=== PATIENT | male | born 1980 | race Caucasian/White ===

== ENCOUNTER 2016-06-28 09:55 | Emergency (ER) | payer OTHER ==
[2016-06-28 10:24] VITALS: RESP 15; TEMP 97.2
[2016-06-28] MEDS ORDERED: Lidocaine 1% 10 MG/ML - 20 ML VIAL SUBCUT ONE (10:24)
[2016-06-28] MEDS ORDERED: Lidocaine Inj 1% 20 ML ONE (10:27)
--- NOTE | 2016-06-28 10:50 | PDOC ---
Lower Extremity Injury HPI - General Chief Complaint: Laceration / Wound Stated Complaint: LEFT LEG LACERATION Date Seen by Provider: 06/28/16 Time Seen by Provider: 10:00 Source: POSITIVE: Patient Exam Limitations: POSITIVE: No limitations Nurse's Notes Reviewed & Considered: Yes - History of Present Illness Initial Comments: The patient is a 35-year-old male. Approximately one hour [employer]PER[employer] he was cutting some cinder block with a concrete power saw. He lacerated his left thigh just above and lateral to the left knee. Laceration is approximately 2-1/2 cm long. No sensory motor or vascular symptoms. Tetanus vaccination status is current Have you received a tetanus shot in the past 10 years?: Yes Body Location Affected: REPORTS: Lower Extremity (L) Timing: REPORTS: Abrupt Duration: 1 hour Severity: Moderate Quality: REPORTS: "Pain" (Local pain) Location at Time of Onset: REPORTS: Work Context of Injury: REPORTS: Incision Location of Injury: REPORTS: Thigh (L) Modifying Factors: improves with: Other (Exacerbated by direct palpation) Associated Symptoms: DENIES: Unable to Bear Weight, Snapping, Popping Sensation , Became Dizzy, Fainted, Seizure, Other Any Prior Injuries Related to Current Complaint?: No - Patient Home Medications Home Medications: Home Medications NK [No Home Medications Reported] 06/28/16 - Patient Allergies Allergies/Adverse Reactions: Allergies Allergy/AdvReac Type Severity Reaction Status Date / Time No Known Allergies Allergy Verified 06/28/16 10:10 Past Medical History - heen HEENT History: Other (please comment) Additional HEENT History: WEARS GLASSES Cardiovascular History: Denies History Respiratory History: Denies History Gastrointestinal History: Denies History Genitourinary History: Denies History Endocrine History: Denies History Musculoskeletal History: Denies History Prosthesis or Implant: No Neurological History: Denies History Blood Disorders: Denies History Psychiatric History: Denies History History of Sexually Transmitted Diseases: No Male Reproductive History: Denies History Cancer History: Denies History In Past Year Been Physically Harmed or Verbally Threatened: No (PER PATIENT) History of MDRO: No History of Other Communicable Diseases: No Tobacco Use: Never Smoker Alcohol Use: Occasionally Substance Use Type: None Previous Surgical History: Yes Type / Date of Surgery: LEFT INGUINAL HERNIA REPAIR, RIGHT THUMB SURGERY Anesthesia Reactions: No Malignant Hyperthermia: No Family History of Malignant Hyperthermia: No Significant Family History: No pertinent family hx Past Medical History Reviewed: Reviewed - No Changes ROS - Limitations ROS Limitations: No Limitations Constitution: REPORTS: Denies Symptoms Cardiovascular: REPORTS: Denies Cardiac Symptoms Respiratory: REPORTS: Denies Resp Symptoms Neurological: REPORTS: Denies Neuro Symptoms Gastrointestinal: REPORTS: Denies GI Symptoms Endocrine: REPORTS: Denies Symptoms Musculoskeletal: REPORTS: Recent Injury (Laceration distal left thigh as above; see diagram.). DENIES: Back Pain, Calf Pain, Joint Pain, Lower Extremity Swelling, Muscle Aches, Neck Pain, Pedal Edema Genitourinary: REPORTS: Denies Symptoms Eyes: REPORTS: Denies Symptoms ENT: REPORTS: Denies Symptoms Lympathic: REPORTS: Denies Lympathic Symptoms Immunologic: POSITIVE: Denies Symptoms Psychiatric: POSITIVE: Denies Psych Symptoms Lower Ext Complaint Exam - General Appearance General Appearance: POSITIVE: Alert, Cooperative, No Acute Distress. NEGATIVE: No Evidence of Trauma (Laceration as above) - Extremities Lower Extremity: POSITIVE: Normal ROM, Normal Color, Normal Temperature, No Joint Swelling, No Evidence of Ischemia, Stable, Soft Tissue Tenderness, See Diagram. NEGATIVE: Skin Intact, Bony Tenderness, Swelling, Ecchymosis, Erythema , Deformity, Pulse Deficit, Limited ROM, Laxity of Ligaments, Joint Effusion, Hip Pain on Leg Movement Lower Extremity Ligament: NEGATIVE: Pain on Anterior Drawer, Pain on Posterior Drawer, Laxity on Anterior Drawer, Laxity w/Posterior Drawer, Pain on Medial Stress, Pain on Lateral Stress, Laxity on Medial Stress, Laxity on Lateral Stress, Other Gait: POSITIVE: Normal Neurovascular/Tendon: POSITIVE: Sensation Normal, Motor Normal, No Vascular Compromise Skin: POSITIVE: Laceration (As above; see diagram) - Respiratory / CVS Respiratory / CVS: POSITIVE: Chest Non Tender, No Ecchymosis, Breath Sounds Normal, No Respiratory Distress, Heart Sounds Normal, Regular Rate/Rhythm Peripheral Pulses: Radial (R): 2+, Radial (L): 2+, Dorsalis-pedis (R): 2+, Dorsalis-pedis (L): 2+ Images - Lower Extremities Lower Extremities: 1 - Laceration Procedures - Laceration/Wound Repair Did patient have a laceration repair: Yes Site of Laceration/Wound: Left distal thigh, laterally Wound Length (cm): 2.5 Wound's Depth, Shape: Into subcutaneous tissue, Linear Time of Suture Placement:: 10:10 Distal CMS: Yes Skin Prep: Betadine Prep, Sterile Field Maintained, Sterile Drapes Applied, Sterile Dressing Applied Local Anesthesia Used - Indicate Amt Used in Comment: Lidocaine 1%: Yes Irrigated w/ Saline (mL): 20 Wound Explored: No foreign body removed Wound Debrided: Minimal Wound Repaired With: Sutures single layer Suture Size/Type: 3:0 Number of Sutures: 4 (vertical mattress sutures) Drain Placement: No Sterile Dressing Applied?: Yes Splint Applied?: No Lower Ext Complaint Progress - Patient's Progress Pain Medication Addressed: POSITIVE: Yes (Recommended Advil or Tylenol) School/Work Release Addressed: POSITIVE: Yes (May return to work) Re-Examine Time:: 10:40 Status: POSITIVE: Improved, Re-Examined - Consult Counseled: POSITIVE: Patient, RE: DX, RE: Need for F/U Patient Care Time - Estimated PCT Patient Care Time (In Minutes): 40 Vital Signs - Recent Vital Signs Vital Signs: Vital Signs (Last 8 hours) Temp Pulse Resp BP Pulse Ox 06/28/16 09:55 97.2 F 109 H 15 147/105 95 - VS Reviewed Vital Signs Reviewed: Yes Discharge Clinical Impression: Laceration Discharge Disposition: Discharged to Home Condition: Stable Patient Instructions Given at Discharge: Laceration (ED) Additional Instructions: Keep sutures clean. Return for suture removal in 12 days. Return sooner anytime at first sign of infection, or if condition worsens in any way. Keep a clean dressing on the wound when at work. Follow Up With: NONE,NONE [Primary Care Provider] - (Instructions as above. Return in 12 days for suture removal; return sooner at first sign of infection or if condition worsens in any way.)
== END 2016-06-28 10:58 | disposition home or self-care (01) ==
LOC: ER 09:55
DX: S71.112A Laceration without foreign body, left thigh, initial encounter (principal); W45.8XXA Other foreign body or object entering through skin, initial encounter; Y99.0 Civilian activity done for income or pay
CPT/HCPCS: 12001; 99282; J2001